=== PATIENT | male | born 1990 | race Caucasian/White ===

== ENCOUNTER 2016-05-17 13:13 | Emergency (ER) | payer BC, OTHER ==
[~2016-05-17] VITALS: Ht 180.3 cm; Wt 74.8 kg
[2016-05-17 13:18] VITALS: BP 153/85; PULSE 119; RESP 18; TEMP 97; O2SAT 97
--- NOTE | 2016-05-17 13:25 | NUR ---
Patient triaged and placed in waiting room. VSS and patient appears in no acute distress at this time. Accompanied by eugene ritchie counselor, awaiting available bed, and MD notified of need for MSE.
--- NOTE | 2016-05-17 13:40 | NUR ---
ER examining patient in triage.
--- NOTE | 2016-05-17 14:35 | NUR ---
Patient to ER bed 07 to gown for evaluation. Side rails up. Report given to Michael.
--- NOTE | 2016-05-17 15:04 | NUR ---
Patient given written and verbal discharge instructions and verbalizes understanding. ER MD discussed with patient the results and treatment provided. Given copies of tests performed in ER. Patient in stable condition. ID arm band removed. Rx of Motrin ,Ofloxacin and Bacitracin given. Patient educated on pain management and to follow up with PMD. Pain Scale 0/10. Opportunity for questions provided and answered.
[2016-05-17 15:05] VITALS: BP 150/85; PULSE 97; RESP 18; TEMP 97; O2SAT 97
== END 2016-05-17 15:04 | disposition home or self-care (01) ==
LOC: SED 13:13
DX: H60.92 Unspecified otitis externa, left ear (principal); G40.909 Epilepsy, unspecified, not intractable, without status epilepticus; R51 Headache
CPT/HCPCS: 70450-TC; 99284